=== PATIENT | male | born 1980 | race Caucasian/White ===

== ENCOUNTER → 2016-09-10 | Outpatient (CLI) | payer BC ==
--- NOTE | 2016-09-10 18:35 | PN ---
DATE OF SERVICE: 09/10/2016 This patient is a 36-year-old gentleman who has been followed in the sleep center to discuss results of diagnostic sleep study. Sleep study was done for snoring and for evaluation of patient's breathing during sleep for possible obstructive sleep apnea/hypopnea syndrome. We discussed the results of the sleep study with the patient in detail. No significant respiratory abnormalities; total apnea-hypopnea index 2.6 in REM sleep, 6.6 with 3% oxygen desaturation criteria for scoring of hypopneas. [place] Sleepiness Scale today is 10. MEDICATIONS: 1. Levaquin. 2. Singulair. 3. Yary. 4. Eye drops for allergies. During physical exam, patient is in no distress. VITAL SIGNS: BP 134/79, HR 62, RR 16. Temperature 98.5. Oxygen saturation at room air 98%. Height ( ) weight 221. BMI 29.1. Patient has lost about 30 pounds since his previous visit. HEENT: NATALIRLA, EOMI. LUNGS: Clear. HEART: S1, S2 regular. ABDOMEN: Soft, nontender. EXTREMITIES: No edema. IMPRESSION: 1. Moderate snoring was documented during the sleep study. 2. No significant respiratory abnormalities were documented during the sleep study. 3. Since his previous visit, the patient has lost 30 pounds of weight, and now his weight is in the range of overweight and not obesity. 4. Sinusitis. 5. History of hypertension in the office. Today blood pressure is practically within normal range. PLAN: 1. Sleep hygiene with regular time in bed for at least 8 hours. 2. Watching weight. 3. No driving if feeling any sleepiness. 4. Patient will consider an evaluation by ear, nose and throat physician for snoring and for sinus problems. 5. If patient continues to have symptoms of excessive daytime sleepiness during the day, we may consider proceeding with polysomnogram with multiple sleep latency test for objective evaluation of his symptoms of sleepiness. But he has to be sure that he is getting enough sleep every night. Thank you very much for allowing me to participate in the management of your patient. Sincerely, Neil Le MD, PhD, FAASM. Diplomat of [employer], Sleep Medicine Board by [employer], [employer]
== END | disposition home or self-care (01) ==

== ENCOUNTER → 2017-05-19 | Outpatient (CLI) | payer BC ==
--- NOTE | 2017-05-19 09:49 | CT ---
EXAMINATION TYPE: CT sinus wo con DATE OF EXAM: 05/19/2017 COMPARISON: 03/10/2016 HISTORY: Sinusitis CT DLP: 673.[address] of the paranasal sinuses was performed in the axial and coronal planes. Bone and soft tissue settings are submitted. The paranasal sinuses demonstrate normal aeration and development. There is an enlarging mucocele of the right maxillary sinus with expansion and further erosion of the right lateral maxillary wall. Underlying neoplasm not excluded. There is complete filling of the rig ht maxillary sinus with obstruction of the right ostiomeatal unit. There is also progressive expansio n of the medial wall of the right maxillary sinus with early erosion difficult to exclude. Internal i ncreased signal is seen within the presumed mucocele The left maxillary sinus is well aerated as are the ethmoid air cells, frontal sinus and sphenoid sin us. Left ostiomeatal unit is patent. The nasal septum is midline. IMPRESSION: 1. 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 There is also expansion of the medial wall of the right maxillary sinus with early erosion of the underlying bone difficult to exclude.
== END | disposition home or self-care (01) ==
LOC: RADCTMAIN 09:04
PROVIDERS: ATTEND Otolaryngology Otolaryngology/Facial Plastic Surgery
DX: J34.1 Cyst and mucocele of nose and nasal sinus (principal); J34.89 Other specified disorders of nose and nasal sinuses
CPT/HCPCS: 70486

== ENCOUNTER → 2018-05-03 | Outpatient (CLI) | payer BC ==
--- NOTE | 2018-05-03 15:32 | CT ---
EXAMINATION TYPE: CT sinus wo con DATE OF EXAM: 05/03/2018 COMPARISON: Sinus CT May 19, 2017 HISTORY: chronic sinusitis per order. Recurrent sinus infections for one year per patient. CT DLP: 459.1 mGycm. Automated Exposure Control for Dose Reduction was Utilized. TECHNIQUE: CT scan of the sinuses is performed without contrast, axial images are obtained, coronal r eformatted images are also reviewed. FINDINGS: There is persistent heterogeneous mucous retention cyst or polyp completely filling the rig ht maxillary sinus causing bulging and thinning of the maxillary sinus rick extending towards maxill maría antrum not significantly changed in size or appearance from most recent CT. No suspicious ossific destruction is seen. Remainder paranasal sinuses are grossly clear. The ostiomeatal complex is paten t on the left on the coronal images. Visualized portion of mastoid air cells show no abnormal opacification. The globes are intact bilate rally. IMPRESSION: Stable large expansile right maxillary sinus mucous retention cyst or polyp. No new sinu s disease is evident.
== END | disposition home or self-care (01) ==
LOC: RADCTMAIN 15:02
PROVIDERS: ATTEND Otolaryngology Otolaryngology/Facial Plastic Surgery
DX: J32.9 Chronic sinusitis, unspecified (principal)
CPT/HCPCS: 70486